=== PATIENT | female | born 1995 | race Caucasian/White ===

== ENCOUNTER 2019-06-30 16:18 | Emergency (ER) | payer OTHER, SELFPAY ==
--- NOTE | ~2019-06-30 | XR_ITS ---
EXAMINATION: XR shoulder LT min 2V EXAM DATE: 06/30/2019 16:52 INDICATION: Initial encounter following injury, with pain of the left shoulder. No range of motion. TECHNIQUE: The following left shoulder projections obtained: frontal projection with internal rotatio n, frontal projection with external rotation, Grashey, and scapular Y view (4+ views). There is no p rior study for comparison. FINDINGS: No evidence of left shoulder rotator cuff calcific tendinosis. Unremarkable left glenohu meral and acromioclavicular joints. There are no acute fractures or dislocations identified. There i s no subcutaneous gas. The soft tissue is unremarkable. There are no radiopaque foreign bodies. IMPRESSION: No acute osseous findings. Reviewed, dictated and finalized at location A. D [employer] SUPERVISOR IMPRESSION: No acute osseous findings.
--- NOTE | 2019-06-30 16:55 | ED.UPPEXIN ---
HPI - Extremity Injury (Upper) General Chief Complaint: Extremity Injury, Upper Stated Complaint: Fall Left Shoulder Pain Time Seen by Provider: 06/30/19 16:57 Source: patient and family History of Present Illness HPI narrative: Patient presents with left shoulder pain after a fall earlier. Patient states it hurts to move her shoulder no numbness or tingling. complaint: injury to: left and shoulder Other Extremity Injury: Left: shoulder Other injuries: none Handedness: right Place: home Severity: mild Related Data Home Medications Medication Instructions Recorded Confirmed No Home Medications 06/30/19 06/30/19 Allergies Allergy/AdvReac Type Severity Reaction Status Date / Time No Known Allergies Allergy Unverified 02/06/18 15:56 Review of Systems Review of Systems: Narrative: CONSTITUTIONAL: Denies fever, chills, or sweats. EYES: Denies visual changes, redness, or discharge. ENT: Denies rhinorrhea, congestion, sore throat, or otalgia. CARDIOVASCULAR: Denies chest pain, palpitations, or edema. RESPIRATORY: Denies cough or dyspnea. GASTROINTESTINAL: Denies abdominal pain, nausea, vomiting, or diarrhea. GENITOURINARY: Denies dysuria or hematuria. SKIN: Denies rash or itching. MUSCULOSKELETAL: Denies back pain, joint pain, or myalgia. NEUROLOGIC: Denies headache, numbness, or weakness. PSYCHIATRIC: Denies anxiety or depression. PMFSH Comments At time of signature, agree with nursing past medical, surgical, social and family history. There is no relevant family history pertinent to the presenting complaint Exam Narrative: Exam Narrative: GENERAL: Well-appearing, well-nourished, and in no acute distress. HEAD: Normocephalic, atraumatic. EYES: PERRLA and EOMI. ENT: Nares clear, no rhinorrhea or epistaxis. Mucous membranes moist. NECK: Supple. CHEST: Clear to auscultation. No respiratory distress. HEART: Regular rate and rhythm. No murmur heard. Normal peripheral pulses. ABDOMEN: Soft, nontender, nondistended, normal active bowel sounds. EXTREMITIES: Normal range of motion. No edema. NO SWELLING, BRUISING, SKIN CHANGES. SKIN INTACT. NORMAL RADIAL PULSE. NO DEFORMITY OF SHOULDER. NO CLAVICLE TENDERNESS. NORMAL UE SENSATION AND STRENGTH. ROM EVALUATED - CAN RAISE UE LIMITED DUE TO DISCOMFORT, CAN ABDUCT, ADDUCT, EXTERNALLY ROTATE AND CAN INTERNALLY ROTATE AND RAISE THUMB UP THE SPINE. NO AC JOINT TENDERNESS, CAN CROSS ARM HORIZONTALLY AND PLACE HAND ON OPPOSITE SHOULDER, NO WINGING OF THE SCAPULA. SUPRASPINATUS APPEARS NORMAL WITH ARMS STRAIGHT OUT AT 30 DEGREES, THUMB DOWN , CAN ABDUCT AGAINST RESISTANCE. SKIN: Warm, dry, no rash. NEURO: No focal deficits. Alert and oriented x3. Butch Coma Scale Eye Opening: Spontaneous 4 [place] Coma Scale Motor: Obeys Commands 6 Butch Coma Scale Verbal: Oriented 5 Butch Coma Scale Total 15 Course Vital Signs Vital signs: Vital Signs Temperature 37.1 C 06/30/19 17:00 Pulse Rate 16 L 06/30/19 17:00 Respiratory Rate 16 06/30/19 17:00 Blood Pressure 148/126 H 06/30/19 17:00 Pulse Oximetry 100 06/30/19 17:00 Temperature 37.1 C 06/30/19 17:00 Pulse Rate 16 L 06/30/19 17:00 Respiratory Rate 16 06/30/19 17:00 Blood Pressure 114/76 06/30/19 17:18 Pulse Oximetry 100 06/30/19 17:00 Discharge Plan Discharge Clinical Impression: Contusion of left shoulder Qualifiers: Encounter type: initial encounter Qualified Code(s): S40.012A - Contusion of left shoulder, initial encounter Patient Disposition: Home, Self-Care Condition: Stable Instructions: Antibiotic Form Additional Instructions: Wear sling until discontinued by primary care provider or orthopedic MD Tylenol and ibuprofen as needed for pain and discomfort Follow-up with Dr. Trent Walter orthopedic on-call Call his office in a.m. for appointment [phone] [address] [place] [address] If any numbness or tingling occurs go to ER immediately for f
[2019-06-30 17:00] VITALS: BP 148/126; PULSE 16; RESP 16; TEMP 37.1; O2SAT 100
[2019-06-30 17:18] VITALS: BP 114/76
== END 2019-06-30 17:40 | disposition home or self-care (01) ==
PROVIDERS: Emergency Provider Nurse Practitioner Family
DX: S40.012A Contusion of left shoulder, initial encounter (principal); W19.XXXA Unspecified fall, initial encounter
CPT/HCPCS: 73030; 99213; A4565; G0463

== ENCOUNTER 2020-11-01 08:25 | Emergency (ER) | payer OTHER, SELFPAY ==
--- NOTE | ~2020-11-01 | XR_ITS ---
EXAMINATION: XR ankle LT min 3V DATE: 11/01/2020 08:56 INDICATION: Left ankle injury and pain. TECHNIQUE: 4 views of left ankle were obtained. COMPARISON: None. FINDINGS: Bone alignment is normal. No fracture. Joint spaces are well maintained. IMPRESSION: 1. No fracture. Reviewed, dictated and finalized at location A. IMPRESSION: 1. No fracture.
--- NOTE | 2020-11-01 08:30 | ED.LOWEXIN ---
HPI - Extremity Injury (Lower) General Chief Complaint: Extremity Injury, Lower Stated Complaint: left foot injury Time Seen by Provider: 11/01/20 08:31 Source: patient and RN notes reviewed History of Present Illness HPI Narrative: Patient is a 25-year-old female who presents the urgent care with complaints of left foot injury. Patient states that while she was running to third [place] at [employer] last night the ball hit her on the inside of the left foot and she rolled the left foot, landing on her left leg. Patient states that she is elevated and used ice but denies any use of pain medication. Patient states pain is exacerbated with ambulation. No other acute complaints. No acute distress noted. Patient aware of the plan of care. Some parts of this dictation were generated by voice recognition software and may contain typographical and/or grammatical inaccuracies. Related Data Home Medications Medication Instructions Recorded Confirmed No Home Medications 06/30/19 11/01/20 Allergies Allergy/AdvReac Type Severity Reaction Status Date / Time No Known Allergies Allergy Verified 11/01/20 08:28 Review of Systems Review of Systems: Narrative: CONSTITUTIONAL: Denies fever, chills, or sweats. EYES: Denies visual changes, redness, or discharge. ENT: Denies rhinorrhea, congestion, sore throat, or otalgia. CARDIOVASCULAR: Denies chest pain, palpitations, or edema. RESPIRATORY: Denies cough or dyspnea. GASTROINTESTINAL: Denies abdominal pain, nausea, vomiting, or diarrhea. GENITOURINARY: Denies dysuria or hematuria. SKIN: Denies rash or itching. MUSCULOSKELETAL: Reports of left foot pain NEUROLOGIC: Denies headache, numbness, or weakness. All other systems reviewed are negative, except as documented in HPI. PMFSH Comments At the time of my signature, I reviewed and agree with the nursing past medical, surgical, social, and family history. There is no relevant family history pertinent to the patient complaint. Exam Narrative: Exam Narrative: GENERAL: This is a well-nourished, well-developed patient, in no apparent distress. HEAD: normocephalic, atraumatic. EYES: PERRL. Sclera clear/white. Vision is grossly intact. EARS: External ears normal NOSE: External nose normal with no obvious nasal discharge, nares without redness, no rhinorrhea. THROAT: Mucous membranes moist NECK: Neck supple CARDIOVASCULAR: Regular rate and rhythm without murmurs, gallops, or rubs. RESPIRATORY: Clear to auscultation. Breath sounds equal bilaterally. No wheezes, rales, or rhonchi. SKIN: warm, intact with no suspicious lesions or rash, good texture and turgor. NEURO: awake, alert, and oriented to person, place and time. There were no obvious focal neurologic abnormalities. EXTREMITIES: 4 x 4 centimeter of ecchymosis noted to the medial aspect of the left foot/malleolus with mild tenderness. No edema noted to left lower extremity. Positive strong left pedal pulse with capillary refill less than 2 seconds. Range of motion within normal limits with some exacerbated pain on weightbearing Course Vital Signs Vital signs: Vital Signs Temperature 98.7 F 11/01/20 08:34 Pulse Rate 110 H 11/01/20 08:34 Respiratory Rate 20 11/01/20 08:34 Blood Pressure 138/81 11/01/20 08:34 Pulse Oximetry 100 11/01/20 08:34 Temperature 98.7 F 11/01/20 08:34 Pulse Rate 110 H 11/01/20 08:34 Respiratory Rate 20 11/01/20 08:34 Blood Pressure 138/81 11/01/20 08:34 Pulse Oximetry 100 11/01/20 08:34 Reviewed MDM - Extremity Injury (Lower) MDM Narrative Medical decision making narrative: Reviewed x-ray results with the patient. She is aware that x-ray was negative for any fracture or deformity. Advised the patient to wear the Joe wrap as directed for comfort and support. Wear supportive shoe. May use the crutches as needed. Avoid any strenuous activity for the next 3 to 7 days or until activity as tolerated as normal. Ice, elevate and
[2020-11-01 08:34] VITALS: BP 138/81; PULSE 110; RESP 20; TEMP 37.1; O2SAT 100
== END 2020-11-01 09:16 | disposition home or self-care (01) ==
PROVIDERS: Emergency Provider Nurse Practitioner Family
DX: S90.32XA Contusion of left foot, initial encounter (principal); S93.602A Unspecified sprain of left foot, initial encounter; W21.07XA Struck by softball, initial encounter
CPT/HCPCS: 73610; 99213; G0463

== ENCOUNTER 2022-02-20 13:55 | Emergency (ER) | payer OTHER, SELFPAY ==
--- NOTE | ~2022-02-20 | XR_ITS ---
EXAMINATION: XR foot LT min 3V DATE: 02/20/2022 14:32 INDICATION: Left foot pain TECHNIQUE: Dorsoplantar, lateral, and 2 oblique views of the left foot were obtained. COMPARISON: None. FINDINGS: There is no fracture, dislocation, or subluxation. The bones and joint spaces are normal. T here is dorsal soft tissue swelling of the foot overlying the metatarsals. IMPRESSION: 1. Dorsal soft tissue swelling of the foot without acute osseous abnormality. Reviewed, dictated and finalized at location A.
--- NOTE | 2022-02-20 14:01 | ED.LOWEXIN ---
HPI - Extremity Injury (Lower) General Chief Complaint: Extremity Injury, Lower Stated Complaint: Left Foot Injury Time Seen by Provider: 02/20/22 14:30 Source: patient and RN notes reviewed Mode of arrival: ambulatory Limitations: no limitations History of Present Illness HPI Narrative: 26-year-old female presents concern for injury to her left foot. She reports prior to arrival she dropped a gardening brick on her foot causing pain, swelling, bruising. She has been using crutches for weightbearing. She denies numbness, tingling. She denies [id number] intervention. complaint: foot injury Related Data Home Medications Medication Instructions Recorded Confirmed No Home Medications 06/30/19 11/01/20 Allergies Allergy/AdvReac Type Severity Reaction Status Date / Time No Known Allergies Allergy Verified 02/20/22 14:14 Review of Systems Review of Systems: CONSTITUTIONAL: Denies malaise, chills, sweats, or fever. SKIN: Denies rash or itching, open skin, laceration, abrasion, redness, warmth MUSCULOSKELETAL: Reports left foot pain, swelling, bruising NEUROLOGIC: Denies numbness, weakness All systems reviewed & are unremarkable except as noted in HPI and below PMFSH Comments At time of signature, agree with nursing past medical, surgical, social and family history. There is no relevant family history pertinent to the presenting complaint Exam Narrative: GENERAL: Well-appearing, well-nourished, and in no acute distress. HEAD: Normocephalic, atraumatic. EYES: PERRLA, conjunctivae clear NECK: Supple. CHEST: Speaks in full sentences. No respiratory distress. HEART: Regular rate and rhythm. Normal and equal peripheral pulses. EXTREMITIES: Left foot, digits have has normal strength and sensation, normal range of motion. Hematoma noted to the dorsal foot without surrounding erythema, edema, ecchymosis. 5/5 strength with ankle and digit flexion and extension. Normal sensation with sensitivity to light touch and pain. Tenderness to the hematoma, otherwise no tenderness noted No open wounds, no skin tenting, no devitalized tissue or atrophy, no trophic changes, no obvious deformity, alignment normal, nearby joints and structures intact. Distal pulses palpable and equal bilaterally, skin warm, dry, pink. Capillary refill less than 3 seconds. SKIN: Warm, dry, no rash. NEURO: Alert and oriented x3. PSYCH: Normal mood and affect Course Course Emergency Course: Patient is aware of diagnosis, understands and agrees to treatment plan. Anticipatory guidance given. Patient agrees to follow-up as directed and is aware of reasons to seek care at the emergency department. Portions of this record may have been created with voice recognition software Level of Care: Express Care Visit Vital Signs Vital signs: Reviewed. MDM - Extremity Injury (Lower) MDM Narrative Medical decision making narrative: Patients injury and pain is consistent with musculoskeletal etiology. No signs of neurological or vascular compromise on exam. Compartments and tissues are soft without signs of compartment syndrome. Pain is felt appropriate for further evaluation on an outpatient basis. Imaging Data My impression: Images reviewed, interpreted by radiologist, agree, see report. Radiologist's impression: EXAMINATION: XR foot LT min 3V DATE: 02/20/2022 14:32 INDICATION: Left foot pain TECHNIQUE: Dorsoplantar, lateral, and 2 oblique views of the left foot were obtained. COMPARISON: None. FINDINGS: There is no fracture, dislocation, or subluxation. The bones and joint spaces are normal. There is dorsal soft tissue swelling of the foot overlying the metatarsals. IMPRESSION: 1. Dorsal soft tissue swelling of the foot without acute osseous abnormality. Critical Care Time Critical Care Time Critical Care Time: No Discharge Plan Discharge Clinical Impression: Hematoma of left foot Patient Disposition: Home, Self-Care Conditi
[2022-02-20 14:02] VITALS: BP 151/89; PULSE 101; RESP 20; TEMP 36.8; O2SAT 100
== END 2022-02-20 14:58 | disposition home or self-care (01) ==
PROVIDERS: Emergency Provider Nurse Practitioner
DX: S90.32XA Contusion of left foot, initial encounter (principal); W20.8XXA Other cause of strike by thrown, projected or falling object, initial encounter
CPT/HCPCS: 73630; 99213; G0463